=== PATIENT | male | born 1985 | race Caucasian/White ===

== ENCOUNTER 2017-05-22 10:20 | Emergency (ER) | payer OTHER ==
[~2017-05-22] VITALS: Ht 177.8 cm; Wt 77.1 kg
--- NOTE | 2017-05-22 10:33 | NUR ---
1st contact with patient, AOX4, respiration:easy, BOOTH, skin warm and dry,on continuous cardiac, BP & spo2 monitors w/ alarms set, on & audible.
--- NOTE | 2017-05-22 10:39 | NUR ---
Patient does not want to answer any questions until his brother is at bedside. Patient brother was called from the waiting room. Safety and comfort measure maintained.
--- NOTE | 2017-05-22 10:44 | NUR ---
Patient and brother are noted to being secretive and paranoid during MSE (e.g. exchanging written notes and hiding the notes at the same time, speaking in Farsi intermittently and started recording the MSE on their cellphone ). Explained to patient and brother that recording without hospital's agreement is illegal. Security and nursing ramp and cargo supervisor notified.
--- NOTE | 2017-05-22 10:52 | NUR ---
A bottle of water was provided per patient's request. Urine specimen was requested from the patient.
--- NOTE | 2017-05-22 10:56 | NUR ---
Patient does not want anything done (e.g. EKG, blood draw, urine collection) unless juice was provided. Apple juice was given to patient per patient's request.
[2017-05-22] MEDS ORDERED: MIDAZOLAM HCL 2 MG/2 ML VIAL IV ONE (11:00)
[2017-05-22] MEDS ORDERED: IV NORMAL SALINE 1000 ML BAG IV ONE (11:00)
--- NOTE | 2017-05-22 11:01 | NUR ---
Patient does not want anything done until his insurance is verified. ER registration staff Joseph notified.
--- NOTE | 2017-05-22 11:14 | NUR ---
PT REQUESTED VERIFICATION OF HIS FUTURE JOS/PAYMENTS WITH HIS INSURANCE COMPANY. [place] W[employer]ONER TALKED TO THE PT ABOUT HOSPITAL POLICY REGARDING INSURANCE BILLING. HE EXPLAINED TO THE PT THAT HE CONTACTED WITH HIS INSURANCE COMPANY AND THEY VERIFIED HIS FULL ELEGIBILITY. PT STATED HI DOES NOT WANT TO DO ANY TESTS UNTIL HE WILL RECEIVE GARANTIES FROM INSURANCE COMPANY ABOUT HIS BILLING. DR PASTRANA WAS NOTIFIED. HE EXPLAINED TO THE PT ALL TEST NECESSITY. PT REFUSED TO DO ANY TESTS AND ELOPED. GAIT WAS STABLE. NO S/S OF ACUTE DISTRESS WERE NOTED AT THAT TIME.
== END 2017-05-22 11:18 | disposition left against medical advice (07) ==
LOC: ER 10:20
DX: F41.9 Anxiety disorder, unspecified (principal); F17.200 Nicotine dependence, unspecified, uncomplicated
CPT/HCPCS: 93005; A4663

== ENCOUNTER 2017-07-24 23:26 | Emergency (ER) | payer OTHER ==
[~2017-07-24] VITALS: Ht 180.3 cm; Wt 86.2 kg
--- NOTE | 2017-07-24 23:59 | NUR ---
Patient discharged to home in stable conditon. Written and verbal after care instructions given. Patient verbalizes understanding of instructions.
== END 2017-07-25 | disposition home or self-care (01) ==
LOC: ER 23:29
DX: J20.9 Acute bronchitis, unspecified (principal); F17.200 Nicotine dependence, unspecified, uncomplicated; Z90.49 Acquired absence of other specified parts of digestive tract
CPT/HCPCS: 99283; A4663

== ENCOUNTER 2017-08-29 16:54 | Emergency (ER) | payer OTHER ==
[~2017-08-29] VITALS: Ht 180.3 cm; Wt 83.9 kg
--- NOTE | 2017-08-29 20:00 | NUR ---
PT C/O FLU LIKE SYMPTOMS, GENERALIZED WEAKNESS AND FEELING "ACHEY ALL OVER" X4 DAYS
--- NOTE | 2017-08-29 21:05 | NUR ---
PT RESTING COMFORTABLY IN CHAIR. NO DISTRESS NOTED.
--- NOTE | 2017-08-29 22:30 | NUR ---
w/ pt for mse
--- NOTE | 2017-08-29 23:00 | NUR ---
Patient discharged to home in stable conditon. Written and verbal after care instructions given. Patient verbalizes understanding of instructions. Pt left w/ steady gait. Took all belongings
[2017-08-30 02:58] VITALS: BP 117/62
== END 2017-08-29 23:30 | disposition home or self-care (01) ==
LOC: ER 16:55
DX: J20.9 Acute bronchitis, unspecified (principal); F17.200 Nicotine dependence, unspecified, uncomplicated; Z90.49 Acquired absence of other specified parts of digestive tract
CPT/HCPCS: 99283; A4663